=== PATIENT | male | born 1995 | race Caucasian/White ===

== ENCOUNTER 2017-04-24 09:14 | Emergency (ER) | payer BC ==
[2017-04-24] MEDS ORDERED: NS 0.9% 1000 ML* 1,000 ML IV ONE (09:33)
[2017-04-24] MEDS ORDERED: Dexamethasone IV* 4 MG/ML 1 ML (4 MG) IV SLOW PU ONE (09:34)
[2017-04-24] MEDS ORDERED: cefTRIAXone VIAL(*) 1,000 MG in NS 0.9% 50 ML* 50 ML IVPB ONE (09:34)
[2017-04-24] MEDS ORDERED: Ketorolac INJ* 30 MG/ML 1 ML VIAL IV ONE (09:34)
--- NOTE | 2017-04-24 09:40 | UC ---
Throat Pain/Nasal Min HPI - HPI Summary HPI Summary: Sore throat since Wed. NO significant cough. Some chills. Sore throat is worsening. Student health could not get him in until next week. He has no prior ENT hx such as abscess or surgery. - History of Current Complaint Chief Complaint: UCGeneralIllness Stated Complaint: SORE THROAT Time Seen by Provider: 04/24/17 09:28 Hx Obtained From: Patient Onset/Duration: Gradual Onset, Lasting Days Severity: Severe Cough: Nonproductive Associated Signs & Symptoms: Positive: Dysphagia. Negative: Drooling, Sinus Discomfort, Nasal Discharge, Vomiting, Rash - Epiglottits Risk Factors Epiglottis Risk Factors: Negative - Allergies/Home Medications Allergies/Adverse Reactions: Allergies Allergy/AdvReac Type Severity Reaction Status Date / Time No Known Allergies Allergy Verified 04/24/17 09:22 Home Medications: Home Medications Ibuprofen TAB* [Advil TAB*] 400 mg PO Q6H PRN 04/24/17 [History Confirmed ] PMH/Surg Hx/FS Hx/Imm Hx Previously Healthy: Yes - Surgical History Surgical History: None - Family History Known Family History: Positive: Other - no ent history. - Social History Occupation: Student Alcohol Use: Weekly Substance Use Type: None Smoking Status (MU): Never Smoked Tobacco - Immunization History Most Recent Influenza Vaccination: Not the Season Review of Systems ENT: Sore Throat All Other Systems Reviewed And Are Negative: Yes Physical Exam Triage Information Reviewed: Yes Appearance: Well-Appearing - no toxic and comfortable except for painful swallowing. He is not drooling or tripoding., No Pain Distress, Well-Nourished Vital Signs: Initial Vital Signs Temp 99.9 F 04/24/17 09:19 Pulse 108 04/24/17 09:19 Resp 24 04/24/17 09:19 BP 123/67 04/24/17 09:19 Pulse Ox 97 04/24/17 09:19 Vital Signs Reviewed: Yes Eye Exam: Normal ENT: Positive: Pharyngeal erythema, TMs normal, Tonsillar swelling, Tonsillar exudate, Muffled/hoarse voice. Negative: TM bulging, TM dull, TM red, Trismus Neck: Positive: Enlarged Nodes @ - van submandibular node enlargement. Respiratory Exam: Normal Cardiovascular Exam: Normal, Other - HR in triage noted as elevated. now during my exam it is 90. Abdominal Exam: Normal Musculoskeletal Exam: Normal Neurological Exam: Normal Psychological Exam: Normal Skin Exam: Normal Re-Evaluation - Re-Evaluation First Eval Change: Improved - He is now taking sips and feels better. He is better able to swallow again. we discussed and reviewed the plan again to take care of himself and return tomorrow. He will take one dose of augmentin and one dose of decadron later today. He will present to ED for any worsening or return here tomorrow for re eval and possible re dosing of meds. Throat Pain/Nasal Course/Dx - Course Assessment/Plan: Aggressive treatment for tonsillitis. there is no asymmetry or fluctuance surround the van tonsils. tonsills are van enlarged but no kissing. NO signs of ludwigs or epiglotitis. Airway is still patent and he his breathing comfortably but not swallowing well. He agrees to go to ED for any worsening but otherwise to return tomorrow for repeat steroid dosing, rocephin dosing and re eval. - Differential Dx/Diagnosis Differential Diagnosis/HQI/PQRI: Epiglottitis, Foreign Body, Influenza, Laryngitis, Alexandru's Angina, Mononucleosis, Otitis Media, Peritonsillar Abscess , Pharyngitis, Sinusitis, Tonsillitis, URI Provider Diagnoses: tonsillitis with tonsillar exudate and swelling. Discharge - Discharge Plan Condition: Good Disposition: HOME Prescriptions: Amoxicillin/Clavulanate TAB* [Augmentin TAB 875*] 875 mg PO BID #20 tab Dexamethasone TAB* [Decadron TAB*] 4 mg PO BID #10 tab Ibuprofen TAB* [Motrin TAB* 800 MG] 800 mg PO Q8H #15 tab Patient Education Materials: Tonsillitis (ED) Additional Instructions: return here tomorrow for re evaluation and possible re dosing meds as we discussed. go to the ED for any worsening of symptoms in the meantime.
[2017-04-24] MEDS ORDERED: cefTRIAXone VIAL(*) 1,000 MG VIAL ONE (09:56)
[2017-04-24 10:35] VITALS: BP 120/81
[2017-04-24 15:44] LABS: Hematocrit 39 % (42-52); Hemoglobin 13.2 g/dl (14.0-18.0); Mean Corpuscular HGB Conc 34 g/dl (31-36); Mean Corpuscular Hemoglobin 30 pg (27-31); Mean Corpuscular Volume 88 fL (80-94); Mean Platelet Volume 8 um3 (7.4-10.4); Red Blood Count 4.37 10^6/ul (4.0-5.4); Red Cell Distribution Width 12 % (10.5-15); White Blood Count 10.1 10^3/ul (3.5-10.8)
[2017-04-24 15:47] LABS: Add Diff/Slide Review? Slide Review Added; Comments Flag Yes
[2017-04-24 16:09] LABS: ALT 162 U/L (7-52); Albumin 4.3 g/dL (3.2-5.2); Alkaline Phosphatase 100 U/L (34-104); BUN/Creatinine Ratio 13.3 (8-20); Blood Urea Nitrogen 11 mg/dL (6-24); CO2 Carbon Dioxide 24 mmol/L (22-32); Calcium 9.4 mg/dL (8.6-10.3); Chloride 97 mmol/L (101-111); EGFR African American 153.5 (>60); EGFR Non-African American 119.4 (>60); Globulin 2.8 g/dL (2-4); Glucose 99 mg/dL (70-100); Sodium 131 mmol/L (133-145); Total Protein 7.1 g/dL (6.4-8.9)
[2017-04-24 16:14] LABS: Anion Gap 10 mmol/L (2-11)
[2017-04-24 17:02] LABS: Immature Granulocytes 6 % (0-9); Neutrophil % 42 % (38-83); RBC Morphology Normal (Normal); Reactive Lymph % 11 % (0-6)
[2017-04-26 13:09] LABS: EBV Response NO
[2017-04-26 13:17] LABS: Manual Entry Verification HAN0055; Mono Internal Control QC Line Present
--- NOTE | 2017-04-26 13:36 | UC ---
Progress - Progress Note Progress Note: please call the pt. + Do[place] Ana may stop taking the antibiotics cont. with rest, and fluid, Ibuprofen no contact sports x 4 weeks Re-Evaluation - Re-Evaluation First Eval Change: Improved - He is now taking sips and feels better. He is better able to swallow again. we discussed and reviewed the plan again to take care of himself and return tomorrow. He will take one dose of augmentin and one dose of decadron later today. He will present to ED for any worsening or return here tomorrow for re eval and possible re dosing of meds.
== END 2017-04-24 11:05 | disposition home or self-care (01) ==
LOC: UCCORT 09:14
DX: J03.90 Acute tonsillitis, unspecified (principal)
CPT/HCPCS: 36415; 80053; 85025; 86308; 96361; 96365; 96375; 99202; G0463; J0696; J1100; J1885

== ENCOUNTER 2017-04-25 09:07 | Emergency (ER) | payer BC | END 2017-04-25 09:48 | disposition left against medical advice (07) | LOC: UCCORT 09:07 | DX: J02.9 Acute pharyngitis, unspecified (principal); Z53.21 Procedure and treatment not carried out due to patient leaving prior to being seen by health care provider ==

== ENCOUNTER 2017-04-25 11:08 | Emergency (ER) | payer BC ==
[2017-04-25 12:17] VITALS: BP 126/52
--- NOTE | 2017-04-25 12:49 | UC ---
Throat Pain/Nasal Min HPI - History of Current Complaint Chief Complaint: UCGeneralIllness Stated Complaint: RE CK SORE THROAT Time Seen by Provider: 04/25/17 12:11 - Allergies/Home Medications Allergies/Adverse Reactions: Allergies Allergy/AdvReac Type Severity Reaction Status Date / Time No Known Allergies Allergy Verified 04/25/17 12:13 PMH/Surg Hx/FS Hx/Imm Hx - Surgical History Surgical History: None - Family History Known Family History: Positive: Other - no ent history. - Social History Alcohol Use: Weekly Substance Use Type: None Smoking Status (MU): Never Smoked Tobacco - Immunization History Most Recent Influenza Vaccination: Not the Season Physical Exam Vital Signs: Initial Vital Signs Temp 98.5 F 04/25/17 12:14 Pulse 85 04/25/17 12:14 Resp 16 04/25/17 12:14 BP 126/52 04/25/17 12:14 Pulse Ox 100 04/25/17 12:14 Throat Pain/Nasal Course/Dx - Differential Dx/Diagnosis Provider Diagnoses: PHARYNGITIS, elevated bp withou dx of htn Discharge - Discharge Plan Condition: Stable Disposition: HOME Patient Education Materials: Pharyngitis (ED) Forms: *Physical Education Release Referrals: Non Staff,Doctor [Primary Care Provider] - Additional Instructions: WE ARE VERY PLEASED THAT YOUR SYMPTOMS HAVE IMPROVED SIGNIFICANTLY SINCE YESTERDAY. YOU SEEM TO BE RECOVERING. THAT SAID, THERE WERE SOME LAB FINDINGS THAT MAKE US SUSPICIOUS OF MONO THE CAUSE OF YOUR SORE THROAT. SO WE ARE ADDING A MONOSPOT TEST THE THE BLOOD THAT WE ALREADY COLLECTED. WE SHOULD HAVE THE RESULTS OF THIS TEST SOON. HOWEVER, IT MAY BE TOO EARLY TO GET A RELIABLE RESULT. IF THIS TEST IS NEGATIVE, YOU SHOULD BE RE-TESTED IN 2 WEEKS TO RULE OUT MONO. IN THE MEAN TIME, YOU SHOULD AVOID CONTACT/COLLISION SPORTS MONO CAN MAKE THIS SPLEEN SWELL AND RUPTURE. pt noted to have elevated bp, likely d/t pt's condition
== END 2017-04-25 12:56 | disposition home or self-care (01) ==
LOC: UCCORT 11:08
DX: J02.9 Acute pharyngitis, unspecified (principal); R03.0 Elevated blood-pressure reading, without diagnosis of hypertension
CPT/HCPCS: 99211; G0463